=== PATIENT | female | born 1965 | race Asian ===

== ENCOUNTER 2020-06-20 05:25 | Observation (INO) | payer BC ==
[~2020-06-20] VITALS: Ht 149.9 cm; Wt 50.8 kg
[2020-06-20 06:28] LABS: BASOPHILS ABSOLUTE AUTO 0.03 K/mm3 (0.00-0.23); BASOPHILS PERCENT AUTO 0 % (0-2); EOSINOPHILS ABSOLUTE AUTO 0.04 K/mm3 (0.00-0.68); EOSINOPHILS PERCENT AUTO 0 % (0-6); Hematocrit 40.1 % (33.0-51.0); Hemoglobin 13.6 g/dL (11.5-16.0); IMMATURE GRAN ABSOLUTE AUTO 0.01 K/mm3 (0.00-0.10); IMMATURE GRAN PERCENT AUTO 0 % (0-1); LYMPHOCYTES ABSOLUTE AUTO 1.11 K/mm3 (0.84-5.20); LYMPHOCYTES PERCENT AUTO 12 % (21-46); MONOCYTES ABSOLUTE AUTO 0.31 K/mm3 (0.16-1.47); MONOCYTES PERCENT AUTO 4 % (4-13); Mean Corpuscular HGB 29.1 pg (26.0-34.0); Mean Corpuscular HGB Conc 33.9 g/dL (31.5-36.5); Mean Corpuscular Volume 86 fL (80-100); Mean Platelet Volume 8.7 fL (9.1-12.4); NEUTROPHILS ABSOLUTE AUTO 7.47 K/mm3 (1.96-9.15); NEUTROPHILS PERCENT AUTO 83 % (41-73); Platelet Count 299 K/mm3 (150-400); RDW Coefficient Variation 12.1 % (11.7-14.2); RDW Standard Deviation 37.9 fL (35.1-46.3); Red Blood Cell Count 4.68 M/mm3 (3.80-5.20); White Blood Cell Count 8.97 K/mm3 (4.00-11.30)
[2020-06-20 06:49] LABS: Troponin I <0.015 ng/mL (0.000-0.040)
[2020-06-20 06:50] LABS: Alanine Aminotransfer (ALT/SGP 20 U/L (12-78); Albumin, Blood 4.1 g/dL (3.4-5.0); Albumin/Globulin Ratio 1.1 (0.8-1.8); Alk Phos 109 U/L (50-136); Anion Gap 7 mmol/L (6-16); Aspartate Aminotrans (AST/SGOT 10 U/L (12-37); Bilirubin, Total 0.4 mg/dL (0.1-1.0); Blood Urea Nitrogen 13 mg/dL (8-24); Bun/Creatinine Ratio 21.2 (12.0-20.0); CO2, Blood 26 mmol/L (21-32); Calcium, Blood 9.4 mg/dL (8.5-10.1); Chloride, Blood 106 mmol/L (98-108); Creatinine, Blood 0.61 mg/dL (0.40-1.00); Globulin, Blood 3.6 g/dL (2.2-4.0); Glomerular Filtration Rate >60 (60-); Glucose, Blood 112 mg/dL (70-99); Potassium, Blood 3.7 mmol/L (3.5-5.5); Sodium, Blood 139 mmol/L (136-145); Total Protein, Blood 7.7 g/dL (6.4-8.2)
--- NOTE | 2020-06-20 09:38 | NUR ---
PT ARRIVED TO UNIT AT APROX 0930 FROM ER. PT INDEPENDENT WITH TX TO BED FROM [facility]. PT C/O 01/12 PAIN IN EPIGASTRIC AREA BUT DENIES PAIN MEDICATION AT THIS TIME REPORTING THAT IT IS "TOO STRONG". LUNGS CLEAR T/O.
[2020-06-20 10:05] LABS: Influenza A, PCR Negative (NEGATIVE); Influenza B, PCR Negative (NEGATIVE); Resp Syncytial Virus, PCR Negative (NEGATIVE); SARS-Cov-2 (COVID-19) PCR, MMC Negative (NEGATIVE)
--- NOTE | 2020-06-20 16:07 | NUR ---
PT TO OR AT APROX 1607.
--- NOTE | 2020-06-20 19:37 | NUR ---
PT TO FLOOR FROM PACU. RECEIVED REPORT FROM PACU AND DAY SHIFT. PT RESTING COMFORTABLY WITH CALL LIGHT IN REACH.
--- NOTE | 2020-06-21 05:06 | NUR ---
SHIFT SUMMARY: CATHY IS A&OX4. VSS, NO ACUTE EVENTS OVERNIGHT. SURGICAL INCISIONS X 4 ON ABDOMEN C/D&I. SHE IS TOLERATING PO INTAKE WELL. IV TO L WRIST PATENT, LR INFUSING. SHE IS INDEPENDENT IN THE ROOM. SHE IS URINTATING WITHOUT DIFFICULTY. SCDs IN PLACE. SHE USES HER CALL LIGHT APPROPRIATELY. SHE IS LYING IN BED WITH HER CALL LIGHT IN REACH. WILL REPORT TO DAY SHIFT RN.
[2020-06-21] MEDS ORDERED: HYDR1TAB94 PO (16:17)
--- NOTE | 2020-06-21 16:48 | NUR ---
PT DISCHARGED VIA WHEELCHAIR AT 0449. 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 SCRIPT SENT WITH PATIENT. IV REMOVED. DISCHARGE INSTRUCTIONS GONE OVER WITH PATIENT. SHE DENIED FURTHER QUESTIONS AT THIS TIME. PT HAS BEEN TOLERATING PO WELL AND AMBULATING IN HER ROOM. VOIDING WELL AND REPORTS PASSING FLATUS.
== END 2020-06-21 16:30 | disposition home or self-care (01) ==
LOC: ER 05:25 → SURS 05:26 → MEDS 05:26 → SURS 09:31
PROVIDERS: Emergency Medicine; ADMIT Surgery
DX: K80.12 Calculus of gallbladder with acute and chronic cholecystitis without obstruction (principal); K21.9 Gastro-esophageal reflux disease without esophagitis; Z23 Encounter for immunization; Z20.822 Contact with and (suspected) exposure to COVID-19
CPT/HCPCS: 0241U; 71046; 74300; 76705; 80053; 83690; 84484; 85025; 88304; 93005; 93010; 96365; 96366; 96374; 96375; 96376; 99285-25; A9270; C1729; C9113; G0378; J0295; J1100; J1885; J2250; J2310; J2405; J2704; J3010; J7120

== ENCOUNTER 2024-07-31 12:23 | Emergency (ER) | payer BC, OTHER ==
[~2024-07-31] VITALS: Ht 149.9 cm; Wt 52.2 kg
[~2024-07-31 12:23] MED LIST: HYDR1TAB94 PO
[2024-07-31 12:28] VITALS: BP 154/111
[2024-07-31] MEDS ORDERED: Ketorolac Tromethamine 15mg Vial IM ONE (12:35)
[2024-07-31] MEDS ORDERED: TiZANidine HCl 4 MG Tab PO ONE (13:20)
[2024-07-31] MEDS ORDERED: LIDO700A20 TOP (14:07)
[2024-07-31] MEDS ORDERED: TIZA4 PO (14:07)
== END 2024-07-31 14:15 | disposition home or self-care (01) ==
LOC: ER 12:23
DX: M62.830 Muscle spasm of back (principal)
CPT/HCPCS: 72100; 72170; 96372; 99283-25; A9270; J1885